=== PATIENT | female | born 1995 | race African-American/Black ===

== ENCOUNTER 2019-08-13 18:07 | Emergency (ER) | payer MEDICAID, OTHER ==
[~2019-08-13] VITALS: Ht 167.6 cm; Wt 73.0 kg
[2019-08-13] MEDS ORDERED: FAMOTIDINE 20MG/2ML VIAL IV STA (18:40)
[2019-08-13] MEDS ORDERED: ONDANSETRON HCL 4MG/2ML INJ IV STA (18:40)
[2019-08-13] MEDS ORDERED: SODIUM CHLORIDE 0.9% 1,000 ML IV ONE (18:40)
[2019-08-13] MEDS ORDERED: LORAZEPAM 2MG/ML CPJ IV ONE (18:45)
[2019-08-13 18:55] LABS: BASOPHILS % 0.6 % (0.0-2.0); EOSINOPHILS % 0.1 % (0.0-5.0); HEMATOCRIT. 40.9 % (36.0-48.0); LYMPHOCYTES % 27.7 % (20.0-50.0); MEAN CORPUSCULAR HEMOGLOBIN 32.9 pg (28.0-32.0); MEAN CORPUSCULAR VOLUME 95.8 fL (81.0-99.0); MEAN PLATELET VOLUME 9.3 fl (7.4-10.4); MONOCYTES % 7.6 % (2.0-8.0); PLATELET 199 x1000/uL (130-400); RED BLOOD CELL COUNT 4.27 mill/uL (4.2-5.4); RED CELL DISTRIBUTION WIDTH 15.3 % (11.6-14.6)
[2019-08-13 18:59] LABS: CHLORIDE 110 mEq/L (98-107)
[2019-08-13] MEDS ORDERED: MAGNESIUM/ALUMINUM HYDROXIDE/SIMETHICONE 30ML UDC PO ONE (22:15)
[2019-08-13 22:27] VITALS: BP 138/74
== END 2019-08-13 23:07 | disposition home or self-care (01) ==
LOC: ER 18:07
DX: R11.15 Cyclical vomiting syndrome unrelated to migraine (principal); R10.13 Epigastric pain; F17.290 Nicotine dependence, other tobacco product, uncomplicated; F12.10 Cannabis abuse, uncomplicated; Z88.0 Allergy status to penicillin
CPT/HCPCS: 36415; 76705; 80053; 83690; 85025; 96361; 96374; 96375; 99284; J2060; J2405; J3490; J7030

== ENCOUNTER 2021-09-10 16:09 | Emergency (ER) | payer MEDICAID ==
[~2021-09-10] VITALS: Ht 172.7 cm; Wt 113.0 kg
[2021-09-10 16:48] LABS: CHLORIDE 111 mEq/L (98-107)
[2021-09-10 16:49] LABS: BASOPHILS % 0.5 % (0.0-2.0); EOSINOPHILS % 0.1 % (0.0-5.0); HEMATOCRIT. 39.6 % (36.0-48.0); HEMOGLOBIN. 13.2 g/dL (12.0-16.0); LYMPHOCYTES % 22.5 % (20.0-50.0); MEAN CORPUSCULAR HEMOGLOBIN 30.6 pg (28.0-32.0); MONOCYTES % 4.3 % (2.0-8.0); NEUTROPHILS % 72.6 % (40.0-76.0); PLATELET 235 x1000/uL (130-400); RED BLOOD CELL COUNT 4.31 mill/uL (4.2-5.4); RED CELL DISTRIBUTION WIDTH 14.7 % (11.6-14.6)
[2021-09-10 17:26] LABS: HCG SCREEN NEGATIVE
[2021-09-10] MEDS ORDERED: KETOROLAC 30MG/ML VIAL IM STA (17:56)
[2021-09-10] MEDS ORDERED: ONDANSETRON 4MG ODT PO STA (17:56)
[2021-09-10] MEDS ORDERED: HALOPERIDOL LACTATE 5MG/ML VIAL IM ONE (18:00)
[2021-09-10] MEDS ORDERED: METOCLOPRAMIDE HCL 10MG/2ML VIAL IV STA (19:37)
[2021-09-10] MEDS ORDERED: SODIUM CHLORIDE 0.9% 1,000 ML IV ONE (19:45)
[2021-09-10] MEDS ORDERED: ONDA4TAB11 PO (20:06)
[2021-09-10 20:20] VITALS: BP 144/98
== END 2021-09-10 20:37 | disposition home or self-care (01) ==
LOC: ER 16:09
DX: K52.9 Noninfective gastroenteritis and colitis, unspecified (principal); Z88.0 Allergy status to penicillin
CPT/HCPCS: 36415; 74176; 80053; 83690; 84703; 85025; 93005; 96372; 96374; 99285; J1630; J1885; J2765; Q0162; J7030

== ENCOUNTER 2021-10-16 02:52 | Emergency (ER) | payer MEDICAID ==
[~2021-10-16] VITALS: Ht 170.2 cm; Wt 160.0 kg
[~2021-10-16 02:52] MED LIST: ONDA4TAB11 PO
[2021-10-16] MEDS ORDERED: ONDANSETRON 4MG ODT PO ONE (04:15)
[2021-10-16] MEDS ORDERED: HALOPERIDOL LACTATE 5MG/ML VIAL IM ONE (04:15)
[2021-10-16 06:36] VITALS: BP 153/79
== END 2021-10-16 06:40 | disposition home or self-care (01) ==
LOC: ER 02:52
DX: R11.2 Nausea with vomiting, unspecified (principal); F12.988 Cannabis use, unspecified with other cannabis-induced disorder; R10.9 Unspecified abdominal pain; F41.9 Anxiety disorder, unspecified; R03.0 Elevated blood-pressure reading, without diagnosis of hypertension
CPT/HCPCS: 96372; 99283; J1630; Q0162

== ENCOUNTER 2022-02-04 05:42 | Emergency (ER) | payer MEDICAID ==
[~2022-02-04] VITALS: Ht 170.2 cm; Wt 105.0 kg
[2022-02-04] MEDS ORDERED: KETOROLAC 30MG/ML VIAL IV STA (06:00)
[2022-02-04] MEDS ORDERED: SODIUM CHLORIDE 0.9% 1,000 ML IV ONE (06:00)
[2022-02-04] MEDS ORDERED: ONDANSETRON HCL 4MG/2ML INJ IV STA (06:00)
[2022-02-04] MEDS ORDERED: METOCLOPRAMIDE HCL 10MG/2ML VIAL IV ONE (07:15)
[2022-02-04] MEDS ORDERED: ONDANSETRON HCL 4MG/2ML INJ IV NR (08:30)
[2022-02-04] MEDS ORDERED: KETOROLAC 30MG/ML VIAL IV NR (08:30)
[2022-02-04 08:48] LABS: BASOPHILS % 0.5 % (0.0-2.0); EOSINOPHILS % 1.1 % (0.0-5.0); HEMATOCRIT. 36.4 % (36.0-48.0); HEMOGLOBIN. 12.4 g/dL (12.0-16.0); LYMPHOCYTES % 14.5 % (20.0-50.0); MEAN CORPUSCULAR HEMOGLOBIN 30.5 pg (28.0-32.0); MEAN CORPUSCULAR VOLUME 89.6 fL (81.0-99.0); MEAN PLATELET VOLUME 8.4 fl (7.4-10.4); MONOCYTES % 3.2 % (2.0-8.0); NEUTROPHILS % 80.7 % (40.0-76.0); PLATELET 311 x1000/uL (130-400); RED BLOOD CELL COUNT 4.06 mill/uL (4.2-5.4)
[2022-02-04] MEDS ORDERED: TOPUD PO (08:54)
[2022-02-04] MEDS ORDERED: ONDA4TAB50 PO (08:54)
[2022-02-04 08:55] LABS: CHLORIDE 105 mEq/L (98-107)
[2022-02-04] MEDS ORDERED: QUETIAPINE FUMARATE 50MG TABLET PO SCH (09:00)
[2022-02-04 09:01] LABS: INR 1.1; PROTHROMBIN TIME 11.6 sec (9.6-11.0)
[2022-02-04 10:30] VITALS: BP 151/79
== END 2022-02-04 10:50 | disposition home or self-care (01) ==
LOC: ER 05:42
DX: R10.13 Epigastric pain (principal)
CPT/HCPCS: 36415; 76705; 80053; 83690; 85025; 85610; 96361; 96374; 96375; 99285; J1885; J2405; J2765; J7030; Z7610

== ENCOUNTER 2022-02-09 15:32 | Emergency (ER) | payer MEDICAID ==
[~2022-02-09] VITALS: Ht 167.6 cm; Wt 100.0 kg
[~2022-02-09 15:32] MED LIST changes: -ONDA4TAB11 PO; +ONDA4TAB50 PO; +TOPUD PO
[2022-02-09 15:47] VITALS: BP 140/96
== END 2022-02-10 11:31 | disposition home or self-care (01) ==
LOC: ER 15:32
DX: F41.9 Anxiety disorder, unspecified (principal)
CPT/HCPCS: 99283

== ENCOUNTER 2022-05-10 04:13 | Emergency (ER) | payer MEDICAID ==
[~2022-05-10] VITALS: Ht 175.3 cm; Wt 100.0 kg
[2022-05-10] MEDS ORDERED: ONDANSETRON HCL 4MG/2ML INJ IV NR (05:42)
[2022-05-10] MEDS ORDERED: LORAZEPAM 2MG/ML CPJ IV NR (05:45)
[2022-05-10] MEDS ORDERED: FAMOTIDINE 20MG/2ML VIAL IV NR (05:45)
[2022-05-10 06:19] LABS: BASOPHILS % 0.5 % (0.0-2.0); HEMATOCRIT. 37.5 % (36.0-48.0); HEMOGLOBIN. 12.8 g/dL (12.0-16.0); LYMPHOCYTES % 12.6 % (20.0-50.0); MEAN CORPUSCULAR HEMOGLOBIN 30.6 pg (28.0-32.0); MEAN CORPUSCULAR VOLUME 90.1 fL (81.0-99.0); MEAN PLATELET VOLUME 9.1 fl (7.4-10.4); MONOCYTES % 2.3 % (2.0-8.0); NEUTROPHILS % 84.6 % (40.0-76.0); PLATELET 262 x1000/uL (130-400); RED BLOOD CELL COUNT 4.17 mill/uL (4.2-5.4); RED CELL DISTRIBUTION WIDTH 14.5 % (11.6-14.6)
[2022-05-10 06:29] LABS: HCG SCREEN NEGATIVE
[2022-05-10 06:39] LABS: CHLORIDE 110 mEq/L (98-107)
[2022-05-10] MEDS: SODIUM CHLORIDE 0.9% 1,000 ML IV NR ×6 (06:45→13:09)
[2022-05-10] MEDS ORDERED: LORAZEPAM 2MG/ML CPJ IV ONE (08:30)
[2022-05-10] MEDS ORDERED: DIPHENHYDRAMINE 50MG/ML VIAL IV ONE (08:30)
[2022-05-10 08:45] VITALS: BP 153/92
[2022-05-10] MEDS ORDERED: MORPHINE SULFATE 4 MG/ML CPJ (NOT FOR IM USE) IV ONE (08:45)
[2022-05-10] MEDS ORDERED: HALOPERIDOL LACTATE 5MG/ML VIAL IM ONE (08:45)
[2022-05-10] MEDS ORDERED: ACETAMINOPHEN 650MG/20.3ML UDC PO ONE (08:45)
[2022-05-10] MEDS ORDERED: METOCLOPRAMIDE HCL 5MG TABLET PO ONE (11:45)
[2022-05-10] MEDS ORDERED: DIPHENHYDRAMINE 50MG/ML VIAL IV SCH (12:00)
[2022-05-10] MEDS ORDERED: HALOPERIDOL LACTATE 5MG/ML VIAL IM SCH (12:00)
[2022-05-10] MEDS ORDERED: ONDA4TAB50 MT (13:34)
[2022-05-10] MEDS ORDERED: ONDANSETRON 4MG ODT PO ONE (14:45)
[2022-05-10] MEDS ORDERED: ONDANSETRON HCL 4MG/2ML INJ IV ONE (18:15)
== END 2022-05-10 19:21 | disposition home or self-care (01) ==
LOC: ER 04:13
DX: R45.851 Suicidal ideations (principal); R10.33 Periumbilical pain; Z88.0 Allergy status to penicillin; Z86.59 Personal history of other mental and behavioral disorders
CPT/HCPCS: 36415; 74176; 80053; 83690; 84703; 85025; 93005; 96372; 96374; 96375; 99291; J1200; J1630; J2060; J2405; J3490; J8597; Q0162; Z7610

== ENCOUNTER 2024-06-13 06:14 | Emergency (ER) | payer OTHER ==
[~2024-06-13] VITALS: Ht 172.7 cm; Wt 114.0 kg
[~2024-06-13 06:14] MED LIST changes: +ONDA4TAB50 MT
[2024-06-13 06:16] VITALS: O2SAT 98
[2024-06-13] MEDS: MAGNESIUM/ALUMINUM HYDROXIDE/SIMETHICONE 30ML UDC PO STA (06:45)
[2024-06-13 06:46] VITALS: TEMP 36.7
[2024-06-13] MEDS: ONDANSETRON HCL 4MG/2ML INJ IV STA (07:00)
[2024-06-13] MEDS: SODIUM CHLORIDE 0.9% 1,000 ML IV ONE (07:00)
[2024-06-13] MEDS: PANTOPRAZOLE SODIUM 40 MG/VIAL IV STA (07:00)
[2024-06-13] MEDS: LORAZEPAM 2MG/ML INJ IV ONE (07:06)
[2024-06-13 07:52] LABS: CHLORIDE 110 mEq/L (98-107); POTASSIUM 3.3 mEq/L (3.5-5.1); SODIUM 144 mEq/L (136-145)
[2024-06-13 07:53] LABS: BASOPHILS % 0.7 % (0.0-2.0); CARBON DIOXIDE 25 mEq/L (21-32); HEMATOCRIT. 37.8 % (36.0-48.0); HEMOGLOBIN. 12.1 g/dL (12.0-16.0); LYMPHOCYTES % 16.2 % (20.0-50.0); MEAN CORPUSCULAR HEMOGLOBIN 29.9 pg (28.0-32.0); MEAN CORPUSCULAR HGB CONC 32.1 g/dL (31.0-37.0); MEAN CORPUSCULAR VOLUME 93.1 fL (81.0-99.0); MEAN PLATELET VOLUME 8.6 fl (7.4-10.4); MONOCYTES % 2.5 % (2.0-8.0); NEUTROPHILS % 80.6 % (40.0-76.0); PLATELET 272 x1000/uL (130-400); RED BLOOD CELL COUNT 4.06 mill/uL (4.2-5.4); RED CELL DISTRIBUTION WIDTH 15.7 % (11.6-14.6); WHITE BLOOD COUNT 6.8 x1000/uL (4.5-11.0)
[2024-06-13 07:58] LABS: CREATININE 0.8 mg/dL (0.6-1.0)
[2024-06-13 07:59] LABS: GLUCOSE 140 mg/dL (70-105); UREA NITROGEN BLOOD 9 mg/dL (9-23)
[2024-06-13 08:11] LABS: HCG SCREEN NEGATIVE
[2024-06-13] MEDS: MORPHINE SULFATE 2 MG/ML INJ (NOT FOR IM USE) IV ONE (08:24)
[2024-06-13] MEDS: METOCLOPRAMIDE HCL 10MG/2ML VIAL IV ONE (08:25)
[2024-06-13 09:04] LABS: CLARITY URINE TURBID (CLEAR); COLOR URINE YELLOW (YELLOW); GLUCOSE URINE NEGATIVE (NEGATIVE); KETONES URINE 2+ (NEGATIVE); LEUKOCYTE ESTERASE URINE NEGATIVE (NEGATIVE); NITRITE URINE NEGATIVE (NEGATIVE); OCCULT BLOOD URINE NEGATIVE (NEGATIVE); PH URINE 7.5 (4.5-8.0); PROTEIN URINE 1+ (NEGATIVE); SPECIFIC GRAVITY URINE 1.025 (1.005-1.030)
[2024-06-13 09:36] LABS: AMORPHOUS SEDIMENT URINE 4+ /lpf; BACTERIA URINE 1+; RBC URINE 0-2 /hpf (0-2); SQUAMOUS EPITHELIAL CELL URINE 3+ /lpf (RARE/1+); WBC URINE 0-2 /hpf (0-2); YEAST URINE NONE SEEN
[2024-06-13] MEDS: HALOPERIDOL LACTATE 5MG/ML VIAL IM ONE (09:47)
[2024-06-13 09:49] LABS: *AMPHETAMINES SCREEN URINE NEGATIVE (NEGATIVE); *BARBITURATES SCREEN URINE NEGATIVE (NEGATIVE); *BENZODIAZEPINES SCREEN URINE NEGATIVE (NEGATIVE); *COCAINE SCREEN URINE NEGATIVE (NEGATIVE); CANNABINOID URINE SCREEN PRESUMPTIVE POSITIVE (NEGATIVE); ECSTASY MDMA SCREEN URINE NEGATIVE (NEGATIVE); METHADONE URINE SCREEN NEGATIVE (NEGATIVE); OPIATES URINE SCREEN NEGATIVE (NEGATIVE); PHENCYCLIDINE URINE SCREEN NEGATIVE (NEGATIVE)
[2024-06-13] MEDS ORDERED: ONDA8TAB59 MT (12:53)
[2024-06-13] MEDS ORDERED: PANT40SU MT (12:53)
[2024-06-13 14:14] VITALS: BP 150/93; PULSE 90; RESP 17; O2SAT 99
[2024-06-13] MEDS ORDERED: QUET200T PO (23:41)
== END 2024-06-13 14:19 | disposition home or self-care (01) ==
LOC: ER 06:14
DX: K29.70 Gastritis, unspecified, without bleeding (principal); R11.15 Cyclical vomiting syndrome unrelated to migraine; F12.90 Cannabis use, unspecified, uncomplicated; Z79.899 Other long term (current) drug therapy; Z88.0 Allergy status to penicillin
CPT/HCPCS: 80305; 80048; 81003; 84703; 83690; 85025; 36415; 74176; 96361; 96372; 96374; 96375; 99285; J1630; J2060; J2765; J2405; J2470; J2270; J7030; Z7610 ×3; A4606

== ENCOUNTER 2024-06-21 14:49 | Emergency (ER) | payer OTHER ==
[~2024-06-21] VITALS: Ht 172.7 cm; Wt 109.0 kg
[~2024-06-21 14:49] MED LIST changes: +ONDA8TAB59 MT; +PANT40SU MT; +QUET200T PO
[2024-06-21 14:55] VITALS: O2SAT 99
[2024-06-21] MEDS: LORAZEPAM 2MG/ML INJ IM STA (15:43)
[2024-06-21] MEDS: DIPHENHYDRAMINE 50MG/ML VIAL IM STA (15:43)
[2024-06-21] MEDS: SODIUM CHLORIDE 0.9% 1,000 ML IV ONE (15:43)
[2024-06-21] MEDS: HALOPERIDOL LACTATE 5MG/ML VIAL IM STA (15:43)
[2024-06-21 15:47] LABS: BASOPHILS % 0.8 % (0.0-2.0); DIFFERENTIAL COMMENT 0; EOSINOPHILS % 0.1 % (0.0-5.0); HEMATOCRIT. 40.7 % (36.0-48.0); HEMOGLOBIN. 13.2 g/dL (12.0-16.0); LYMPHOCYTES % 26.1 % (20.0-50.0); MEAN CORPUSCULAR HEMOGLOBIN 29.3 pg (28.0-32.0); MEAN CORPUSCULAR HGB CONC 32.3 g/dL (31.0-37.0); MEAN CORPUSCULAR VOLUME 90.7 fL (81.0-99.0); MEAN PLATELET VOLUME 9.4 fl (7.4-10.4); MONOCYTES % 8.9 % (2.0-8.0); NEUTROPHILS % 64.1 % (40.0-76.0); PLATELET 240 x1000/uL (130-400); RED BLOOD CELL COUNT 4.49 mill/uL (4.2-5.4); RED CELL DISTRIBUTION WIDTH 16.1 % (11.6-14.6); WHITE BLOOD COUNT 6.5 x1000/uL (4.5-11.0)
[2024-06-21 15:50] LABS: CHLORIDE 103 mEq/L (98-107); POTASSIUM 3.1 mEq/L (3.5-5.1); SODIUM 140 mEq/L (136-145)
[2024-06-21 15:51] LABS: CARBON DIOXIDE 24 mEq/L (21-32)
[2024-06-21 15:52] LABS: CALCIUM 9.9 mg/dL (8.7-10.4)
[2024-06-21 15:56] LABS: CREATININE 0.8 mg/dL (0.6-1.0)
[2024-06-21 15:57] LABS: ETHANOL BLOOD < 10 mg/dL (<10); GLUCOSE 139 mg/dL (70-105); UREA NITROGEN BLOOD 7 mg/dL (9-23)
[2024-06-21 15:58] LABS: ACETAMINOPHEN < 2 ug/mL (10-30)
[2024-06-21 20:12] LABS: CLARITY URINE TURBID (CLEAR); COLOR URINE YELLOW (YELLOW); GLUCOSE URINE NEGATIVE (NEGATIVE); KETONES URINE 2+ (NEGATIVE); LEUKOCYTE ESTERASE URINE TRACE (NEGATIVE); NITRITE URINE NEGATIVE (NEGATIVE); OCCULT BLOOD URINE NEGATIVE (NEGATIVE); PH URINE >=9.0 (4.5-8.0); PROTEIN URINE 1+ (NEGATIVE); SPECIFIC GRAVITY URINE 1.022 (1.005-1.030)
[2024-06-21 20:24] LABS: BACTERIA URINE 1+; RBC URINE 0-2 /hpf (0-2); SQUAMOUS EPITHELIAL CELL URINE 2+ /lpf (RARE/1+)
[2024-06-21 20:30] LABS: *AMPHETAMINES SCREEN URINE NEGATIVE (NEGATIVE); *BARBITURATES SCREEN URINE NEGATIVE (NEGATIVE); *BENZODIAZEPINES SCREEN URINE NEGATIVE (NEGATIVE); *COCAINE SCREEN URINE NEGATIVE (NEGATIVE); CANNABINOID URINE SCREEN PRESUMPTIVE POSITIVE (NEGATIVE); ECSTASY MDMA SCREEN URINE NEGATIVE (NEGATIVE); METHADONE URINE SCREEN NEGATIVE (NEGATIVE); OPIATES URINE SCREEN NEGATIVE (NEGATIVE); PHENCYCLIDINE URINE SCREEN NEGATIVE (NEGATIVE)
[2024-06-21] MEDS: KETOROLAC 30MG/ML VIAL IM STA (23:32)
[2024-06-22] MEDS: ACETAMINOPHEN 325MG TABLET PO ONE (07:12)
[2024-06-22 07:51] VITALS: BP 187/104; PULSE 95; RESP 18; TEMP 36.9; O2SAT 99
[2024-06-22] MEDS: DIPHENHYDRAMINE 50MG/ML VIAL IM ONE (08:18)
[2024-06-22] MEDS: HALOPERIDOL LACTATE 5MG/ML VIAL IM ONE (08:18)
[2024-06-22] MEDS ORDERED: SULF1TAB48 MT (10:23)
== END 2024-06-22 10:10 | disposition home or self-care (01) ==
LOC: ER 14:49
DX: F41.9 Anxiety disorder, unspecified (principal); F25.0 Schizoaffective disorder, bipolar type; F31.9 Bipolar disorder, unspecified; F12.90 Cannabis use, unspecified, uncomplicated; Z79.899 Other long term (current) drug therapy; Z20.822 Contact with and (suspected) exposure to COVID-19; Z88.0 Allergy status to penicillin
CPT/HCPCS: 80305; 80048; 81003; 81025; 80307; 80329; 80320; 85025; 36415; 96360; 96372 ×2; 99285; 87426; J1200 ×2; J1630 ×2; J1885; J2060; J7030; Z7610; 96361; G0480